=== PATIENT | female | born 1965 | race Caucasian/White ===

== ENCOUNTER → 2024-11-14 08:18 | Outpatient (BNVA) | payer MEDICARE, SELFPAY | PROVIDERS: Referring Provider Physical Medicine & Rehabilitation; Visit Provider Specialist | DX: G62.9 Polyneuropathy, unspecified (principal); E11.9 Type 2 diabetes mellitus without complications; M17.0 Bilateral primary osteoarthritis of knee; Z96.652 Presence of left artificial knee joint | CPT/HCPCS: 99204 ==

== ENCOUNTER 2024-12-24 13:11 | Outpatient (CLI) | payer MEDICARE, SELFPAY ==
[2024-12-24 13:54] LABS: Erythrocyte Sedimentation Rate 11 mm/hr (0-15)
[2024-12-24 14:07] LABS: Estmated Average Glucose 120; Hemoglobin A1C 5.8 % (4.0-6.0)
[2024-12-24 14:29] LABS: Vitamin B12 311 pg/mL (232-1245)
[2024-12-24 14:35] LABS: Folate Level 14.2 ng/mL (4.8-37.3)
== END 2024-12-24 13:12 | disposition home or self-care (01) ==
PROVIDERS: Visit Provider Specialist
DX: G62.9 Polyneuropathy, unspecified (principal); E11.9 Type 2 diabetes mellitus without complications
CPT/HCPCS: 36415; 82607; 82746; 83036; 85651; 86140

== ENCOUNTER → 2024-12-31 12:39 | Outpatient (BNVA) | payer MEDICARE, SELFPAY | PROVIDERS: Referring Provider Specialist; Visit Provider Specialist | DX: G62.9 Polyneuropathy, unspecified (principal) | CPT/HCPCS: 95910 ==

== ENCOUNTER → 2025-02-26 11:32 | Outpatient (BNVA) | payer MEDICARE, SELFPAY | PROVIDERS: Referring Provider Physical Medicine & Rehabilitation; Visit Provider Specialist | DX: G58.7 Mononeuritis multiplex (principal); G62.9 Polyneuropathy, unspecified; M54.50 Low back pain, unspecified; M17.0 Bilateral primary osteoarthritis of knee; Z96.652 Presence of left artificial knee joint | CPT/HCPCS: 99213 ==

== ENCOUNTER 2025-03-04 09:57 | Outpatient (CLI) | payer MEDICARE, SELFPAY ==
--- NOTE | 2025-03-04 10:15 | MR_ITS ---
WS: [id number] MRI LUMBAR SPINE WITH AND WITHOUT CONTRAST HISTORY: G62.9 - Polyneuropathy, unspecified COMPARISON: 11/28/2023 TECHNIQUE: Sagittal and axial multisequence imaging is submitted. Prior anterior cervical fusion. Numerous Schmorl's nodes defects are noted within the thoracic and lumbar spines. No fractures or marrow edema. Normal lumbar alignment with no compression fractures or marrow edema. Disc spaces and vertebral body heights are well-preserved. Conus terminates normally at L1-2 disc level. T12-L1: Mild annular disc bulging and small osteophytes with facet arthritis. No stenosis. L1-L2: Normal. L2-L3: Mild bilateral facet arthritis. No stenosis. L3-L4: Mild annular disc bulging with facet and ligamentum flavum hypertrophy. Small amount of fluid in the facet joints. Very mild narrowing of the LEFT foramen. L4-L5: Mild annular disc bulging with ligamentum flavum and facet arthritis encroaching upon the central canal. Fluid in the facet joints. Shallow central disc protrusion. Small foraminal osteophytes. Mild central, subarticular recess and foraminal stenosis. There is mild disc encroachment upon the L4 and L5 nerve roots. L5-S1: Mild facet arthritis. No stenosis. Paravertebral soft tissues are negative. MR/MR lumbar spine wo/w con [id number] IMPRESSION: 1. No high-grade central or foraminal stenosis. 2. No fractures. 3. L4-5: Mild central, subarticular recess and foraminal stenosis due to combi nation of disc, osteophytosis and facet arthritis. 4. Mild disc facet joint arthropathy as above. Most significant at L4-5. 5. No large central disc protrusions.
[2025-03-04] MEDS: gadobenate dimeglumine 20 mL vial IV (11:13)
== END 2025-03-04 09:58 | disposition home or self-care (01) ==
PROVIDERS: Visit Provider Specialist
DX: G62.9 Polyneuropathy, unspecified (principal); M51.35 Other intervertebral disc degeneration, thoracolumbar region; M48.061 Spinal stenosis, lumbar region without neurogenic claudication; M51.369 Other intervertebral disc degeneration, lumbar region without mention of lumbar back pain or lower extremity pain; M25.78 Osteophyte, vertebrae; M47.896 Other spondylosis, lumbar region; M46.96 Unspecified inflammatory spondylopathy, lumbar region
CPT/HCPCS: 72158; A9577

== ENCOUNTER → 2025-03-17 11:29 | Outpatient (BNVA) | payer MEDICARE, SELFPAY | PROVIDERS: PCP Nurse Practitioner; Visit Provider Specialist | DX: G58.7 Mononeuritis multiplex (principal); M17.0 Bilateral primary osteoarthritis of knee; Z96.652 Presence of left artificial knee joint; G57.72 Causalgia of left lower limb; G62.9 Polyneuropathy, unspecified; M51.9 Unspecified thoracic, thoracolumbar and lumbosacral intervertebral disc disorder | CPT/HCPCS: 99214 ==

== ENCOUNTER → 2025-03-26 09:34 | Outpatient (BNVA) | payer MEDICARE, SELFPAY | PROVIDERS: PCP Nurse Practitioner; Visit Provider Student in an Organized Health Care Education/Training Program | DX: Z96.652 Presence of left artificial knee joint (principal); M17.0 Bilateral primary osteoarthritis of knee; Z46.89 Encounter for fitting and adjustment of other specified devices; M25.562 Pain in left knee; M25.561 Pain in right knee | CPT/HCPCS: 73560; 73565 ==

== ENCOUNTER 2025-03-26 15:14 | Outpatient (CLI) | payer MEDICARE, SELFPAY | END 2025-03-26 15:15 | disposition home or self-care (01) | LOC: SPT 15:15 | PROVIDERS: PCP Nurse Practitioner; Visit Provider Physician Assistant | DX: Z46.89 Encounter for fitting and adjustment of other specified devices (principal); M25.561 Pain in right knee; M25.562 Pain in left knee | CPT/HCPCS: 97760; L1812; L1851 ==

== ENCOUNTER → 2025-06-25 09:51 | Outpatient (BNVA) | payer MEDICARE, SELFPAY | PROVIDERS: PCP Nurse Practitioner; Visit Provider Physician Assistant | DX: M17.11 Unilateral primary osteoarthritis, right knee (principal) | CPT/HCPCS: 99214 ==

== ENCOUNTER → 2025-07-17 13:50 | Outpatient (BNVA) | payer MEDICARE, SELFPAY | PROVIDERS: PCP Nurse Practitioner; Visit Provider Orthopaedic Surgery | DX: M48.062 Spinal stenosis, lumbar region with neurogenic claudication (principal) | CPT/HCPCS: 72110; 99203; 99213 ==

== ENCOUNTER → 2025-08-05 10:05 | Outpatient (BNVA) | payer MEDICARE, SELFPAY | PROVIDERS: PCP Nurse Practitioner; Referring Provider Orthopaedic Surgery; Visit Provider Anesthesiology Pain Medicine | DX: M54.50 Low back pain, unspecified (principal) | CPT/HCPCS: 99204 ==

== ENCOUNTER 2025-09-01 16:04 | Outpatient (CLI) | payer MEDICARE, SELFPAY ==
--- NOTE | 2025-09-01 16:30 | CT_ITS ---
WS: [id number] CT RIGHT knee, noncontrast HISTORY: RIGHT TOTAL KNEE ARTHROPLASTY TECHNIQUE: Protocol for [facility] total knee replacement has been obtained. This includes axial imaging through the RIGHT hip, RIGHT knee and RIGHT ankle. DLP: 972.15 mGy.cm COMPARISON: Radiograph 03/26/2025 RIGHT hip: Degenerative air in the SI joints. Mild narrowing of the hip joint. No fractures. There is mild motion artifact on the images. RIGHT knee: Moderate to severe tricompartment osteoarthritis. Large marginal hypertrophic osteophytes along the joint lines. Severe narrowing of the medial compartment. No fracture. Small suprapatellar effusion. Small calcified foci along the posterior knee RIGHT ankle: Mild mid foot arthropathy. CT/CT knee RT [facility] [id number] IMPRESSION: CT imaging provided for [facility] robotic total knee replacement.
== END 2025-09-01 16:05 | disposition home or self-care (01) ==
LOC: RAD 16:06
PROVIDERS: Family Provider Family Medicine; PCP Nurse Practitioner; Visit Provider Physician Assistant
DX: Z01.818 Encounter for other preprocedural examination (principal); M46.1 Sacroiliitis, not elsewhere classified; M25.761 Osteophyte, right knee; M25.461 Effusion, right knee; R93.6 Abnormal findings on diagnostic imaging of limbs; M12.871 Other specific arthropathies, not elsewhere classified, right ankle and foot
CPT/HCPCS: 73700; 80053; 85025